=== PATIENT | male | born 1955 | race Caucasian/White ===

== ENCOUNTER 2017-09-30 12:20 | Inpatient (IN) | payer BC ==
[2017-09-30] MEDS ORDERED: LIDOCAINE 1% W/ EPINEPHRINE 20 ML VIAL INJ ONE (12:30)
[2017-09-30] MEDS ORDERED: IBUPROFEN 200 MG TAB PO ONE (12:45)
[2017-09-30] MEDS ORDERED: HYDROcodone 5MG/APAP 325MG 1 EA TAB PO ONE (12:45)
[2017-09-30] MEDS ORDERED: levoFLOXacin 500MG IV 500 MG in PREMIX BAG 1 BAG IVPB ONE (13:45)
[2017-09-30] MEDS ORDERED: SODIUM CHLORIDE 0.9% 1000ML 1,000 ML IVS ONE (13:45)
[2017-09-30] MEDS ORDERED: metroNIDAZOLE IV PREMIX 500MG 500 MG in PREMIX BAG 1 BAG IVPB ONE (13:45)
--- NOTE | 2017-09-30 14:04 | ED.PDOC ---
History of Present Illness - General Chief Complaint: Skin/Abrasion/Tear Stated Complaint: abscess Time Seen by Provider: 09/30/17 12:24 Source: patient Exam Limitations: no limitations - History of Present Illness Initial Comments: the patient is a 62-year-old male presenting to the emergency room secondary to a perirectal abscess that is primarily to the right of the rectumpresent for at least the last 4 days. He has had some mild drainage from the site. Additionally the patient has had fevers and increased body aches and generalized weakness. The patient has been on Augmentin for the last 3 days for a sinus infection primarily. He has not had any issues with perirectal abscesses or any pollen out of cyst abscesses in the past. He reports otherwise being healthy. He is febrile here upon arrival. He is weak. Severity: moderate Improving Factors: nothing Worsening Factors: nothing Associated Symptoms: diaphoresis, fever/chills, loss of appetite, malaise, nausea/vomiting, weakness Allergies/Adverse Reactions: Allergies NO KNOWN ALLERGY Allergy (Verified 09/30/17 12:40) Home Medications: Ambulatory Orders Amoxicillin & Pot Clavulanate [Augmentin Tab] 875 mg PO BID 09/30/17 Cyclobenzaprine HCl [Flexeril] 5 mg PO TID 09/30/17 Diclofenac Potassium 50 mg PO BID PRN 09/30/17 Fluticasone Propionate (Nasal) [Flonase] 50 mcg NA DAILY 09/30/17 Review of Systems - Review of Systems Constitutional: States: chills, diaphoresis, fever, malaise, weakness EENTM: States: no symptoms reported, nose congestion Respiratory: States: no symptoms reported Cardiology: States: no symptoms reported Gastrointestinal/Abdominal: States: nausea. Denies: abdominal pain, constipation, diarrhea, vomiting Genitourinary: States: no symptoms reported Musculoskeletal: States: other - General backache Skin: States: no symptoms reported Neurological: States: no symptoms reported Endocrine: States: excessive sweating Hematologic/Lymphatic: States: no symptoms reported All other Systems: No Change from Baseline Past Medical History (General) - Patient Medical History Hx Stroke: No Hx Congestive Heart Failure: No Surgical History: appendectomy - Vaccination History Hx Tetanus, Diphtheria Vaccination: No - uknown Hx Influenza Vaccination: No - Social History Hx Tobacco Use: Yes Family Medical History - Family History Father Family History: Unknown Living Status: Unknown Physical Exam - Physical Exam General Appearance: Alert, Ill Appearing Eye Exam: bilateral normal Ears, Nose, Throat: nasal congestion Neck: full range of motion, supple Respiratory: lungs clear, normal breath sounds, no respiratory distress, no accessory muscle use Cardiovascular/Chest: normal peripheral pulses, regular rate, rhythm, no edema Peripheral Pulses: radial,right: 2+, radial,left: 2+, dorsalis pedis,right: 2+, dorsalis pedis,left: 2+ Gastrointestinal/Abdominal: non tender, soft Rectal Exam: other - the patient has an area of significant erythema and induration to the right of the rectum. There is also a area where the abscess Route has formed something of an eschar. 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 He would likely be in worse condition had he not already been on Augmentin. The patient is currently placed on IV metronidazole and Levaquin. Blood culture and wound cultures have been taken. A three-quarter inch incision was made through the eschar over the roof of the abscess. It is drained approximately 10-15 cc of pus at this time. 3 cc of Xylocaine with epinephrine were used for local anesthetic prior. Abscess cavity was explored with a cotton-tip swab and approximately 6 inches of quarter inch iodoform gauze were used for packing. Risk and benefits were you explained prior. The patient is receiving a liter of IV fluids as a bolus as his blood pressures are borderline low. Lactic acid is upper limits of normal. blood sugar is moderately elevated which may be a stress response. This needs further monitoring. Admitted for further IV antibiotics and care. anticipate a 3 to four-day hospital stay given his current condition. - Results/Orders Results/Orders: Laboratory Tests 09/30/17 09/30/17 09/30/17 12:58 12:58 12:58 WBC 17.3 H RBC 4.52 L Hgb 13.8 L Hct 40.8 L MCV 90.4 MCH 30.5 MCHC 33.9 RDW 13.5 Plt Count 151 MPV 9.6 Absolute Neuts (auto) 14.70 H Absolute Lymphs (auto) 1.10 Absolute Monos (auto) 1.60 H Absolute Eos (auto) 0.00 Absolute Basos (auto) 0.00 Neutrophils % 84.8 H Lymphocytes % 6.1 L Monocytes % 9.0 Eosinophils % 0.0 L Basophils % 0.1 Sodium 131 L Potassium 4.1 Chloride 100 L Carbon Dioxide 26 Anion Gap 9.1 L BUN 18 Creatinine 1.19 BUN/Creatinine Ratio 15.1 Random Glucose 197 H Serum Osmolality 270.0 L Lactic Acid 2.1 Calcium 8.5 Total Bilirubin 1.3 H AST 28 ALT 36 Alkaline Phosphatase 75 Serum Total Protein 7.0 Albumin 3.5 Globulin 3.5 Albumin/Globulin Ratio 1.0 L blood culture and wound culture of the performed Departure - Departure Clinical Impression: Perirectal abscess, Septicemia Disposition: Admit Patient Condition: Serious Home Medications: Ambulatory Orders Amoxicillin & Pot Clavulanate [Augmentin Tab] 875 mg PO BID 09/30/17 Cyclobenzaprine HCl [Flexeril] 5 mg PO TID 09/30/17 Diclofenac Potassium 50 mg PO BID PRN 09/30/17 Fluticasone Propionate (Nasal) [Flonase] 50 mcg NA DAILY 09/30/17 Decision To Admit - Decistion To Admit Decision to Admit Reason: Medical Nature Decision to Admit Date: 09/30/17 Decision to Admit Time: 14:10
[2017-09-30] MEDS ORDERED: metroNIDAZOLE IV PREMIX 500MG 100 ML IVPB ONE ×3 (14:12→19:30)
--- NOTE | 2017-09-30 14:28 | HP ---
SUPERVISING PHYSICIAN: Shar Maya MD CHIEF COMPLAINT: Possible abscess. HISTORY OF PRESENT ILLNESS: This is a 62 year-old male patient who came into the Emergency Room due to a possible abscess around his rectum. He states for the last 3 to 4 days he has had some pain and swelling around that area on the right around the anus. He never had one in that location before. He states he has had an ingrown hair on his lip before that he has had to take antibiotics for. Several days ago he was diagnosed with a sinus infection and was placed on Augmentin and Flonase for a sinus infection but he did not have the pain at that time. In the Emergency Room he was evaluated to have a perirectal abscess at 3 o'clock in relation to the anus. He had an incision and drainage in the Emergency Room and the wound was packed with approximately 6 inches of 1/4 inch Iodoform. A culture was sent as well as blood cultures were drawn. He was noted to be febrile with a 101.9 temperature and had a leukocytosis. For these reasons, he was referred for admission. At time of examination, the patient states he felt better than he did when he came in. He had already been given Flagyl and Levaquin. He did have a mild drop in his blood pressure systolic in the 90s and therefore he was given bolus IV fluids. PAST MEDICAL HISTORY: The patient denies any past medical history but he said he probably does have high cholesterol. PAST SURGICAL HISTORY: 1. Sinus surgery. 2. Facial laceration repair. 3. Ruptured appendix surgery. 4. Right tib/fib fracture repair. CURRENT MEDICATIONS: 1. Augmentin 875 p.o. b.i.d. 2. Cyclobenzaprine 5 mg p.o. t.i.d. 3. Diclofenac 50 mg p.o. b.i.d. 4. Fluticasone 50 mcg nasally daily. ALLERGIES: NO KNOWN DRUG ALLERGIES. FAMILY HISTORY: Noncontributory. SOCIAL HISTORY: The patient is a previous smoker for 33 years. He smoked half a pack a day but quit 10 years ago. Socially he drinks alcohol, no illicit drugs. He is . REVIEW OF SYSTEMS: CONSTITUTIONAL: Positive for fever and chills. No recent weight loss or gain. Positive for some malaise. HEENT: A little bit of a headache with the sinus infection. The patient for nasal congestion, no throat pain. No ear pain. RESPIRATORY: No cough, hemoptysis or pleuritic chest pain. CARDIAC: No chest pain, palpitations, peripheral edema. GI: No nausea, vomiting, diarrhea, constipation or abdominal pain. : No dysuria, frequency, or flank pain. HEMATOLOGIC: No easy bruising or transfusion reaction. ENDOCRINE: No polydipsia, polyuria, no heat or cold intolerance. MUSCULOSKELETAL: Positive for cramp, back pain, no muscle cramps or joint pain or swelling. INTEGUMENT: Positive for the wound as described in history of present illness but no rashes otherwise. NEUROLOGIC: No seizures, paraesthesias or syncope. PHYSICAL EXAMINATION: VITAL SIGNS: Blood pressure 98/51, heart rate 56, respiratory rate 18, temperature 101.9. 02 saturation 92%. GENERAL: Mr. Rubio is a 62 year-old male patient in no severe distress currently. HEENT: Normocephalic and atraumatic. Pupils equal and reactive. Nose with no drainage. Throat with moist mucosa. NECK: Supple, no jugular venous distention. CHEST: Symmetrical with equal rise and fall of the chest to inspiration and expiration. Lung sounds clear to auscultation bilaterally. CARDIOVASCULAR: Regular rate and rhythm. Normal S1, S2. ABDOMEN: Soft, positive bowel sounds. : Exam deferred. His perirectal abscess was assessed. There is some erythema and it's firm to touch but no fluctuance currently. There is an incision with packing coming out of it. I do not see any active drainage. There is a gauze on top of that that has some obvious purulent drainage that has come out on that. - EXTREMITIES: Lower extremities with 2+ pulses, capillaries refill less than 2 seconds. NEUROLOGIC: The patient is alert and oriented and moves all extremities. Extraocular movements are intact. LABORATORY: White count 17,300, hemoglobin 13.8, hematocrit 40.8. Platelet count 151,000. Sodium 131, potassium 4.1, chloride 100, C02 of 26, BUN 18, creatinine 1.19, glucose 197. Calcium 8.5, total bilirubin 1.3. Lactic acid 2.1. ASSESSMENT: 1. Perirectal abscess status post incision and drainage in the Emergency Room. 2. Sepsis secondary to #1. 3. Hyponatremia. 4. Hyperglycemia with no history of diabetes mellitus. 5. Chronic back pain. PLAN: At this point, source control has been performed with incision and drainage of the abscess. Will continue antibiotics with Levaquin and Flagyl at this time. Will monitor the cultures and adjust accordingly. He does have some hyponatremia and appears to be somewhat dehydrated. Therefore, I am going to continue IV fluids. Also, his chemistry shows hyperglycemia with a glucose of 197. I will check a hemoglobin A1C. He does not have a history of diabetes. I have put a consultation in for Dr. Rivera to evaluate the patient as well. 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 [id number] [facility]ENTERJavier
[2017-09-30] MEDS ORDERED: levoFLOXacin 500MG IV 100 ML IVPB ONE (14:47)
[2017-09-30] MEDS ORDERED: SODIUM CHLORIDE 0.9% (FLUSH) 10 ML SYG IV PRN (15:03)
[2017-09-30] MEDS ORDERED: IV SET AND CAP CHANGE INJ INJ SCH (15:30)
[2017-09-30] MEDS: SODIUM CHLORIDE 0.9% 1000ML 1,000 ML IVS PRN (15:45)
[2017-09-30] MEDS ORDERED: NON-FORMULARY MEDICATION 1 EA MIS (Diclofenac Potassium [Diclofenac Potassium] 50 MG) PO PRN (16:33)
[2017-09-30] MEDS: metroNIDAZOLE IV PREMIX 500MG 500 MG in PREMIX BAG 1 BAG IVPB SCH (21:40)
[2017-09-30] MEDS: ACETAMINOPHEN 325 MG TAB PO PRN (21:40)
[2017-09-30] MEDS: CYCLOBENZAPRINE HCL 5 MG TAB PO SCH (21:40)
[2017-10-01] MEDS: SODIUM CHLORIDE 0.9% 1000ML 1,000 ML IVS PRN ×2 (00:32→12:09)
[2017-10-01] MEDS: metroNIDAZOLE IV PREMIX 500MG 500 MG in PREMIX BAG 1 BAG IVPB SCH ×3 (05:33→23:40)
[2017-10-01] MEDS: ACETAMINOPHEN 325 MG TAB PO PRN ×2 (07:50→20:32)
[2017-10-01] MEDS: CYCLOBENZAPRINE HCL 5 MG TAB PO SCH ×3 (08:42→20:33)
[2017-10-01] MEDS: FLUTICASONE PROP 0.05% NASAL 16 GM BTTL BNAS SCH (08:42)
--- NOTE | 2017-10-01 11:06 | CT ---
EXAM DESCRIPTION: Abdomen/Pelvis w/wo Contrast: Computed Tomography. CLINICAL HISTORY: perirectal abscess rule out tunneling COMPARISON: None. TECHNIQUE: Spiral-axial scans at 5.0 mm intervals through the abdomen and pelvis before and after standard dose nonionic IV contrast. No oral contrast. Coronal and sagittal 2.0 mm reconstructions. 5 mm Delayed helical-axial scans, liver through the pubic symphysis. 15 minute delayed helical 2.5 mm scans through the perineum. No adverse reactions. Total Exam DLP 4210.76 mGy - cm. This exam was performed according to our departmental CT dose-optimization program which includes automated exposure control, adjustment of the mA and/or kV according to patient size and/or use of iterative reconstruction technique; to reduce radiation dose to as low as reasonably achievable (ALARA). FINDINGS: Lung bases and pleura: Negative. Liver, Stomach, Spleen, Adrenal Glands: Fatty density of the liver and 20 cm long axis right lobe. Otherwise unremarkable. Pancreas, Gallbladder, Ducts: Gallbladder visualized. Fatty pancreas. Common bile duct normal caliber. Kidneys and Ureters: 2 cm cyst right kidney and 1 cm cyst left kidney upper pole and 2 subcentimeter cysts lower pole. Mesentery: No free fluid or free air. No fatty stranding or fascial thickening in the abdomen or pelvic cavity. Aorta: Normal caliber minimal calcification of the proximal common iliac arteries. Small Bowel: Unremarkable. Terminal Ileum/Cecum: Negative. Appendix not seen. Colon: Diffuse fecal matter. Redundant splenic flexure. Pelvic Organs: Small prostate gland with calcification. Abutting the urinary bladder with no calcifications distal ureters unremarkable. No free fluid. Spine and Bony Pelvis: Minimal spondylosis L5-S1. Bilateral degenerative changes acetabula with hypertrophy and subchondral radiolucencies detached spur on the right. Abdominal Wall/Back Soft Tissues: In the perineum, there is thickening of soft tissue and minimal enhancement on the right lateral aspect of the anus with edema extending to the parasagittal and posterior right buttock. No fluid collection or soft tissue mass. No calcification or gas density. Normal density and enhancement of the gluteal muscles. IMPRESSION: 1. Inflammatory process in the right perianal soft tissues and right buttock adipose tissue, with no fluid collection, abscess, fistula, or gas formation. 2. Steatosis of the liver and mild hepatomegaly. No ascites. Normal vascularity. No intrahepatic or extrahepatic biliary dilatation. 3. Bilateral renal cysts otherwise negative. Electronically signed by: Trent Pathak MD 10/01/2017 10:59 AM CDT
[2017-10-01] MEDS ORDERED: GLUCAGON INJ 1 MG VIAL SUBCU PRN (11:09)
[2017-10-01] MEDS ORDERED: DEXTROSE 50% 25 GM/50 ML SYG IV PRN (11:09)
[2017-10-01] MEDS: INSULIN LISPRO 100 UNITS/ML PEN SUBCU SCH ×3 (11:50→21:15)
--- NOTE | 2017-10-01 13:06 | CONS ---
DATE OF CONSULTATION: 10/01/17 HISTORY OF PRESENT ILLNESS: The patient is a 62-year-old male who was admitted through the Emergency Room last night with a four day history of tenderness and drainage from the right posterior rectum. The patient has had fever, body aches prior to his presentation. The patient had been on Augmentin for three days for a sinus infection. He has never had previous problems with perirectal abscess, inflammatory bowel disease, blood per rectum, change in his bowel habits and he has never had a colonoscopy. PAST SURGICAL HISTORY: 1. Appendectomy. CURRENT MEDICATIONS: 1. Augmentin. 2. Flexeril. 3. Flonase. 4. Diclofenac. 5. Potassium. ALLERGIES: NO KNOWN DRUG ALLERGIES. FAMILY HISTORY: Noncontributory. 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 He does use tobacco. REVIEW OF SYSTEMS: Unremarkable except as in the history of present illness. He does complain of nose congestion. He has noted no lymphadenopathy. He has no problems with his extremities. PHYSICAL EXAMINATION: GENERAL: The patient is awake, alert, cooperative. He appears to be in good health. VITAL SIGNS: Temperature 101 this morning. HEENT: Sclerae nonicteric. Mucous membranes moist. NECK: Without adenopathy. BACK: Without CVA tenderness. CHEST: Equal breath sounds bilaterally. HEART: Regular rhythm. ABDOMEN: Soft, nontender. RECTAL: Deferred, but the perianal areas reveals a radial incision with purulent drainage to the right and posterior of the anus. There is a small amount of drainage, but no packing is identified. LABORATORY: White count is down to 15.3 with 83% neutrophils this morning. Hemoglobin 13.3, placated 144,000. Chemistries this morning reveal potassium 4.4, blood sugars 192. Liver function tests area okay. Creatinine 0.91. MICROBIOLOGY: Blood cultures are both negative at less than 24 hours. Wound culture pending. RADIOLOGY: CT scan of the abdomen reveals inflammatory changes without gas or fluid collection in the area of the abscess. ASSESSMENT: 1. Perianal or perirectal abscess status post I&D in the Emergency Room with cultures pending. PLAN: He is currently being treated with Levaquin and Flagyl which should be adequate. It is possible that the wound may need to be re-packed. I have ordered showers and given him instructions for rinsing it thoroughly. If he remains febrile or his white count does not improve, I will consider reexploration and repacking. #[id number] [facility]
[2017-10-01] MEDS ORDERED: metroNIDAZOLE IV PREMIX 500MG 100 ML IVPB ONE ×2 (13:59→19:15)
[2017-10-01] MEDS ORDERED: levoFLOXacin 750MG IV 750 MG in PREMIX BAG 1 BAG IVPB SCH (14:00)
[2017-10-01] MEDS: HYDROcodone 5MG/APAP 325MG 1 EA TAB PO PRN (14:12)
--- NOTE | 2017-10-01 14:14 | PN ---
SUPERVISING PHYSICIAN: Shar Maya MD DATE: 10/01/17 SUBJECTIVE: The patient really feels pretty bad this morning. I was called with a temperature of 104. He has not been medicated quite yet for the temperature. He does have chronic back pain as well as complaining of some back pain. Otherwise, he has no other overnight events. OBJECTIVE: VITAL SIGNS: Blood pressure 115/66. Heart rate 79. Respiratory rate 22. Temperature 104.0. Oxygen saturation 99%. GENERAL: Mr. Rubio is a 62-year-old male patient who appears acutely ill at this time. NEUROLOGIC: Alert and oriented. LUNGS: Clear to auscultation bilaterally. CARDIOVASCULAR: Regular rate and rhythm. Normal S1, S2. ABDOMEN: Soft. Positive bowel sounds. GENITOURINARY: Deferred, but I did evaluate his right buttock cellulitis and it seems to be about the same as yesterday, still erythematous, still firm to the touch, but no fluctuance. Packing is still in place. EXTREMITIES: Peripheral pulses 2+. Capillary refill is less than 2 seconds. LABORATORY: Labs are reviewed in the EMR and show white count 15.3 which is an improvement from yesterday of 17.3, hemoglobin 13.3, hematocrit 38.6, platelet count 144. Chemistry shows pretty much unremarkable findings except for the fact that total bilirubin is now normal at 0.9. Glucose is still elevated at 192. I did check a hemoglobin A1c due to his elevated glucose and it was 7.5. ASSESSMENT: 1. Perirectal abscess status post I&D in the Emergency Room. 2. Sepsis secondary to #1. 3. Hyponatremia. 4. Diabetes mellitus as evidenced by hemoglobin A1c of 7.5. 5. Chronic back pain. PLAN: At this time, I have contacted Dr. Rivera to evaluate the patient. We have also ordered CT scan of the abdomen and pelvis to ensure that this is not a tunneling abscess or deeper than the superficial wound appears to be. He has had a slight improvement in his white cell count, however, not to the degree I felt it should be in addition to the fact that he spiked a temperature of 104. We will continue the current antibiotics. I have discussed this with Dr. Rivera and he is in agreement that he is on the appropriate antibiotics. I am also starting him on a sliding scale insulin and changing his diet to a 2000 calorie ADA. I did discussed with him in depth the result of his hemoglobin A1c. I discussed with him the fact that he would need to cut back on sugar as well as carbohydrates. He will also need to followup with his primary care physician regarding diabetes medications. He verbalized understanding of this. We will followup on the CT scan and discussed with Dr. Rivera once he makes rounds. #[id number] [facility]ITALJavier
[2017-10-01] MEDS: SODIUM CHLORIDE 0.9% (FLUSH) 10 ML SYG IV SCH (20:34)
[2017-10-02] MEDS: ACETAMINOPHEN 325 MG TAB PO PRN ×2 (02:30→17:59)
[2017-10-02] MEDS ORDERED: metroNIDAZOLE IV PREMIX 500MG 100 ML IVPB ONE ×3 (05:35→20:10)
[2017-10-02] MEDS: metroNIDAZOLE IV PREMIX 500MG 500 MG in PREMIX BAG 1 BAG IVPB SCH ×3 (06:14→21:36)
[2017-10-02] MEDS: INSULIN LISPRO 100 UNITS/ML PEN SUBCU SCH ×3 (07:17→17:52)
[2017-10-02] MEDS: FLUTICASONE PROP 0.05% NASAL 16 GM BTTL BNAS SCH ×2 (08:04→08:07)
[2017-10-02] MEDS: CYCLOBENZAPRINE HCL 5 MG TAB PO SCH ×4 (08:04→21:27)
[2017-10-02] MEDS: SODIUM CHLORIDE 0.9% (FLUSH) 10 ML SYG IV SCH ×2 (08:04→20:50)
[2017-10-02] MEDS ORDERED: VANCOMYCIN PER PHARMACY INJ SCH (10:00)
[2017-10-02] MEDS: KCL 20MEQ/D5 1/2NS 1,000 ML IVS PRN ×2 (10:28→22:16)
[2017-10-02] MEDS: HYDROcodone 5MG/APAP 325MG 1 EA TAB PO PRN ×2 (10:33→19:29)
[2017-10-02] MEDS ORDERED: VANCOMYCIN HCL INJ 500 MG VIAL ONE ×2 (10:45→20:09)
[2017-10-02] MEDS ORDERED: VANCOMYCIN HCL INJ 1,000 MG VIAL IVPB ONE ×2 (10:46→20:10)
[2017-10-02] MEDS ORDERED: SODIUM CHLORIDE 0.9% 250ML 250 ML ONE ×2 (10:46→20:10)
[2017-10-02] MEDS: VANCOMYCIN HCL INJ 1,000 MG, VANCOMYCIN HCL INJ 500 MG in SODIUM CHLORIDE 0.9% 250ML 25... IVPB SCH ×2 (10:54→23:05)
[2017-10-02] MEDS ORDERED: MORPHINE SULFATE INJ 10 MG/ML VIAL IV PRN (12:46)
[2017-10-02] MEDS ORDERED: KETOROLAC TROMETHAMINE INJ 30 MG/ML VIAL IV ONE (12:46)
[2017-10-02] MEDS ORDERED: levoFLOXacin 750MG IV 750 MG in PREMIX BAG 1 BAG IVPB SCH (13:00)
--- NOTE | 2017-10-02 16:54 | PN ---
SUPERVISING PHYSICIAN: Shar Maya MD DATE: 10/02/17 SUBJECTIVE: The patient continues to have a significant amount of discomfort and ran a low grade fever last night. OBJECTIVE: VITAL SIGNS: T-max 100.3, pulse 73, blood pressure 148/81, respirations 18, saturation 98% on room air. I&O: Negative balance of 1989 with 2760 in, 4750 out. Weight 109.1 kg. GENERAL: The patient is resting in bed visiting with his son and appears to be in no acute distress. CHEST: Lungs are clear to auscultation bilaterally. HEART: Regular rate and rhythm without evidence of notable murmurs, gallops or rubs. ABDOMEN: Soft, non-tender, positive bowel sounds. : Again, on the right butt cheek is area of cellulitis that extends up to underneath the scrotum. ANAL AREA: No fluctuation is noted. Packing has been removed. EXTREMITIES: No edema. NEUROLOGIC: He is alert and oriented x3. LABORATORY: White count up to 16,400 today with hemoglobin of 13.4, hematocrit 38.8, platelet count 180,000. Differential does show a left shift. Chemistries show normal electrolytes, potassium 4.1, blood sugar between 135 and 169. Calcium 8.5. MICROBIOLOGY: Blood cultures remain negative at 48 hours. Wound culture preliminary on the gram stain showed no WBCs with a lot of gram positive cocci. ASSESSMENT: 1. Perirectal abscess status post I&D on admission showing slow clinical response requiring of vancomycin with initial gram stain showing a gram positive cocci and final culture results pending. 2. Sepsis secondary to #1 with continued low grade fever and increase in leukocytosis. 3. Hyponatremia on admission, resolved with IV fluids. 4. Diabetes mellitus, new diagnosis as noted with hemoglobin A1c of 7.5. 5. Chronic back pain. PLAN: Dr. Rivera continues to manage the patient in regards to the wound. He was able to examine and close the wound today. Given that the area shows some slight increase in induration we will make the patient n.p.o. today and start him on some IV fluids in case he is going to need additional incision and drainage tomorrow. Will start him on D5 with half normal saline with 20 of potassium at 150 an hour. Will continue with current antibiotic therapy with Levaquin, Flagyl and addition of vancomycin per vancomycin protocol given the gram positive cocci. Will continue to monitor patient until discharge. #[id number] [facility]
--- NOTE | 2017-10-02 19:36 | PCM.CORE ---
Physician DVT/VTE - Nurse DVT Assessment & Total Each Risk Factor Represents 3 Points: Medical PT with Hx of CO, CHF, Severe infection/sepsis Each Risk Factor Represents 2 Points: Age 60-74 Each Risk Factor is 1 Point: Obesity (BMI >25) DVT Assessment Score: 6 - 5 or more Very High Risk Treatments: Early Ambulation *, Sequential Compression Device Pharmacological: Enoxaparin 40mg SQ Daily
[2017-10-02] MEDS ORDERED: ENOXAPARIN SODIUM 40 MG/0.4 ML SYG SUBCU SCH (20:00)
[2017-10-02] MEDS ORDERED: ACETAMINOPHEN 325 MG TAB PO ONE (22:09)
[2017-10-02] MEDS ORDERED: ACETAMINOPHEN 325 MG TAB ONE (22:10)
[2017-10-03] MEDS: INSULIN LISPRO 100 UNITS/ML PEN SUBCU SCH ×2 (00:30→06:40)
[2017-10-03] MEDS ORDERED: metroNIDAZOLE IV PREMIX 500MG 100 ML IVPB ONE (01:21)
[2017-10-03] MEDS: metroNIDAZOLE IV PREMIX 500MG 500 MG in PREMIX BAG 1 BAG IVPB SCH (05:34)
[2017-10-03] MEDS ORDERED: ACETAMINOPHEN 325 MG TAB PO ONE (05:51)
[2017-10-03] MEDS: SODIUM CHLORIDE 0.9% (FLUSH) 10 ML SYG IV SCH (08:18)
[2017-10-03] MEDS: FLUTICASONE PROP 0.05% NASAL 16 GM BTTL BNAS SCH (08:18)
[2017-10-03] MEDS: KCL 20MEQ/D5 1/2NS 1,000 ML IVS PRN (08:55)
[2017-10-03 10:04] VITALS: BP 125/74; TEMP 98.7; O2SAT 97
[2017-10-03] MEDS ORDERED: VANCOMYCIN HCL INJ 500 MG VIAL ONE (10:07)
[2017-10-03] MEDS ORDERED: SODIUM CHLORIDE 0.9% 250ML 250 ML ONE (10:07)
[2017-10-03] MEDS ORDERED: VANCOMYCIN HCL INJ 1,000 MG VIAL IVPB ONE (10:07)
[2017-10-03] MEDS: VANCOMYCIN HCL INJ 1,000 MG, VANCOMYCIN HCL INJ 500 MG in SODIUM CHLORIDE 0.9% 250ML 25... IVPB SCH (10:30)
[2017-10-03] MEDS ORDERED: ENOXAPARIN SODIUM 40 MG/0.4 ML SYG SUBCU SCH (11:00)
--- NOTE | 2017-10-04 08:21 | DS ---
SUPERVISING PHYSICIAN: Shar Maya MD ADMISSION DIAGNOSIS: 1. Perirectal abscess status post incision and drainage in the Emergency Department. 2. Sepsis secondary to #1. 3. Hyponatremia. 4. Hypoglycemia with no history of diabetes mellitus. 5. Chronic back pain. DISCHARGE DIAGNOSIS: 1. Perirectal abscess status post incision and drainage, failing to respond to current treatment plan, currently on antibiotics including vancomycin, Levaquin and Flagyl with gram stain showing a gram positive cocci with final culture results pending at time of transfer. 2. Sepsis secondary to #1 with continued low grade fever and increasing leukocytosis requiring transfer to higher level of care for surgical intervention not available at [facility] at time of transfer. 3. Hyponatremia on admission, resolved with IV fluids. 4. Diabetes mellitus, new diagnosis as noted with hemoglobin A1c of 7.5. 5. Chronic back pain. REASON FOR HOSPITALIZATION: Mr. Rubio is a 62-year-old male patient who initially presented to the Emergency Room on 09/30/17 due to a possible abscess around his rectum. He stated for the last 3 to 4 days prior to admission he had some pain and swelling around that area on the right around the anus. He never had one in that location before. He states he has had an ingrown hair on his lip before that he has had to take antibiotics for. Several days prior, he was diagnosed with a sinus infection and was placed on Augmentin and Flonase for a sinus infection, but he did not have the pain at that time. In the Emergency Room, he was evaluated to have a perirectal abscess at 3 o'clock in relation to the anus. He had an incision and drainage in the Emergency Room by Dr. Jeison Dee and the wound was packed with approximately 6 inches of 1/4 inch Iodoform gauze. A culture was sent as well as blood cultures were drawn. He was noted to be febrile with a 101.9 temperature and had a significant leukocytosis. For these reasons, he was referred for admission. He was already started on Flagyl and Levaquin. He did have a mild drop in his blood pressure systolic in the 90s and therefore he was given IV fluids. He was admitted in stable condition for further treatment, evaluation and surgical consultation. LABORATORY: White count on admission was 17,300 and at discharge was 17,200. Hemoglobin was stable at hemoglobin 13 and hematocrit 38.1 with platelet count 195,000. Differential did continue to show a left shift. Chemistries on admission showed a mild hyponatremia at 131. Otherwise, normal electrolytes at discharge and transfer. His electrolytes were normal with potassium 4.1, BUN 16 , creatinine 0.84. Lactic acid on admission was 2.1, calcium normal at 8.5. Liver functions all within normal limits. Hemoglobin A1c was elevated at 7.1. Blood sugars ranged from 115 to 215. MICROBIOLOGY: Four sets of blood cultures were completed, all remaining negative at time of transfer. Wound culture completed in the Emergency Room gram stain showed no WBCs with moderate amount of gram positive cocci with final culture results pending at time of discharge. RADIOLOGY: He had CT of the abdomen and pelvis in the Emergency Department prior to admission without contrast and per radiologic interpretation, there was note of inflammatory process in the right perianal soft tissue and right buttocks, adipose tissue with no fluid collection, abscess, fistula or gas formation. Steatosis of the liver, mild hepatomegaly with no ascites noted, no intrahepatic or extrahepatic biliary dilation. Bilateral renal cysts. Otherwise, negative. See that report for full details. CONSULTATION: Surgical consultation with Dr. Rivera. Please refer to his report. HOSPITAL COURSE: Mr. Rubio was admitted from the Emergency Department on 09/30 after he had incision and drainage of the perirectal abscess. He was initiated on antibiotics with Flagyl and Levaquin and surgical consultation was secured with Dr. Rivera, which was done the following day after admission. The patient continued to be febrile. Initially on admission, his temperature was 101.9. T-max through hospitalization was 104. Within the last 24 hours prior to transfer, T-max was 101.2. Given the fact that the patient had gram positive cocci and was not showing any significant improvement, he was initiated on vancomycin per pharmacy protocol. He was followed by Dr. Rivera. The patient was made NPO on 10/02/17 and on 10/03/17, it was found that the patient's incision and drainage site had worsened and had now formed some fluctuation areas and continued to show increasing erythema and with concerns for worsening abscess and possible gangrene formation, decision was to transfer the patient to [facility] as there was no surgical on-call team available at [facility] at time of transfer. PLAN: Transfer was secured and admission to [facility]. Accepting physician was Dr. Allred. Hospitalist was Dr. Calvo. The patient was transferred via ground ambulance with continued antibiotic therapy to higher level of care not available at [facility] at time of transfer. The patient's discharge condition was stable, but guarded. Records were sent with the patient including all radiographic studies, laboratory studies and documentation. #[id number] [facility]
== END 2017-10-03 13:06 | disposition short-term general hospital (02) | DRG 854 ==
LOC: ER 12:20 → MS 14:25
PROVIDERS: ADMIT Nurse Practitioner; ATTEND Nurse Practitioner Family
PROC: 0D9P0ZZ Drainage of Rectum, Open Approach (ICD-10-PCS; principal; 2017-09-30)
DX: A41.9 Sepsis, unspecified organism (principal); K61.1 Rectal abscess; E87.1 Hypo-osmolality and hyponatremia; M54.9 Dorsalgia, unspecified; G89.29 Other chronic pain; E11.9 Type 2 diabetes mellitus without complications; Z87.891 Personal history of nicotine dependence